=== PATIENT | male | born 1935 | race Caucasian/White ===

== ENCOUNTER 2016-11-05 09:16 | Emergency (ER) | payer MEDICARE, OTHER ==
[~2016-11-05 09:16] MED LIST: ADULT LOW DOSE81 M1 PO; ALEVE220 M4 PO; AMBIEN10 M1 PO; ANDROGEL TD; ASPIRIN81 MG; BACTRIM DS TAB1 EAC2 PO; COUMADIN1 M1 PO; COUMADIN5 M2 PO; CPAP; FISH OIL1 CAP; FISH OIL500 M3 PO; FLOMAX0.4 MG; IRON PO; LASIX20 M1 PO; LIDOCAINE-PRILO30 G1 TP; LIPITOR40 M1 PO; LIPITOR40 MG; LISINOPRIL40 MG; LODOSYN25 MG; LOVENOX100 MG/1 M SC; MIRALAX17 G2 PO; MULTI VITAMIN1 EAC2 PO; ONDANSETRON HCL8 M1 PO; OXYCODONE HCL5 M1 PO; POTASSIUM CHLO10 ME3 PO; STOOL SOFTENER50 MG; TYLENOL PM EX-S1 TAB; ZESTRIL10 M3 PO; ZZZQUIL25 MG PO
[2016-11-05 10:13] LABS: BASO % 0.1 % (0-2); EOS % 1.1 % (0-7); EOSINOPHIL ABSOLUTE COUNT 0.1 tho/cmm (0.0-0.7); HCT-HEMATOCRIT 37.8 % (36.0-53.5); HGB-HEMOGLOBIN 11.4 gm/dl (13.5-17.0); IMMATURE GRANULOCYTES ABSOLUTE 0.02 tho/cmm (0-0.03); IMMATURE GRANULOCYTES PERCENT 0.2 % (0-0.3); LYMPH ABSOLUTE COUNT 0.7 tho/cmm (0.8-4.5); MCH (MEAN CORPUSCULAR HGB) 29.5 pg (28.0-32.0); MCHC MEAN CORPUSCULAR HGB CONC 30.2 % (32.0-36.0); MCV (MEAN CELL VOLUME) 97.9 fl (82.0-96.0); MONO % 7.8 % (0-12); MONOCYTE ABSOLUTE COUNT 0.6 tho/cmm (0.0-1.2); NEUTROPHIL ABSOLUTE COUNT 6.7 tho/cmm (1.6-8.0); NEUTROPHIL-AUTOMATED 6.7 tho/cmm (1.6-8.0); NEUTROPHILS % 82.8 % (40-80); RED BLOOD COUNT 3.86 mil/cmm (4.40-5.70); RED CELL DISTRIBUTION WIDTH 17.9 % (12.4-16.4); WHITE BLOOD COUNT 8.1 tho/cmm (4.0-10.0)
[2016-11-05 10:22] LABS: INR 2.4 INR (0.9-1.1); PROTHROMBIN TIME 28.2 SECONDS (9.0-13.6)
[2016-11-05 10:28] LABS: ANION GAP 13 mmol/L (0-20); BLOOD UREA NITROGEN 15 mg/dl (6-24); CALCIUM 8.5 mg/dl (8.5-10.5); CARBON DIOXIDE-VENOUS 24 mmol/L (22-32); CHLORIDE 114 mmol/l (96-110); CREATININE 0.91 mg/dl (0.60-1.30); GLUCOSE 119 mg/dL (70-110); POTASSIUM 4.2 mmol/L (3.7-5.1); SODIUM 147 mmol/L (135-145); eGFR VALUE FOR BLACK >90 mL/Min
[2016-11-05 11:25] LABS: PLATELET COUNT 75 tho/cmm (150-450)
== END 2016-11-05 11:36 ==
LOC: EDMED 09:16
PROVIDERS: Emergency Medicine
DX: D69.59 Other secondary thrombocytopenia (principal); T45.1X5A Adverse effect of antineoplastic and immunosuppressive drugs, initial encounter; R04.0 Epistaxis

== ENCOUNTER 2016-11-15 07:43 | Day surgery (SDC) | payer MEDICARE, OTHER ==
[2016-11-15 08:37] LABS: BASO % 0.2 % (0-2); EOS % 1.6 % (0-7); EOSINOPHIL ABSOLUTE COUNT 0.2 tho/cmm (0.0-0.7); HCT-HEMATOCRIT 34.7 % (36.0-53.5); HGB-HEMOGLOBIN 10.5 gm/dl (13.5-17.0); IMMATURE GRANULOCYTES ABSOLUTE 0.07 tho/cmm (0-0.03); IMMATURE GRANULOCYTES PERCENT 0.5 % (0-0.3); LYMPH % 5.8 % (20-45); LYMPH ABSOLUTE COUNT 0.8 tho/cmm (0.8-4.5); MCH (MEAN CORPUSCULAR HGB) 29.7 pg (28.0-32.0); MCHC MEAN CORPUSCULAR HGB CONC 30.3 % (32.0-36.0); MEAN PLATELET VOLUME 11.5 cmc (9.4-12.4); MONOCYTE ABSOLUTE COUNT 1.2 tho/cmm (0.0-1.2); NEUTROPHILS % 82.9 % (40-80); PLATELET COUNT 64 tho/cmm (150-450); RED BLOOD COUNT 3.54 mil/cmm (4.40-5.70); RED CELL DISTRIBUTION WIDTH 17.4 % (12.4-16.4); WHITE BLOOD COUNT 13.2 tho/cmm (4.0-10.0)
[2016-11-15 08:41] LABS: INR 1.8 INR (0.9-1.1); PROTHROMBIN TIME 20.7 SECONDS (9.0-13.6)
[2016-11-15 08:49] LABS: ANION GAP 13 mmol/L (0-20); BLOOD UREA NITROGEN 15 mg/dl (6-24); CALCIUM 8.2 mg/dl (8.5-10.5); CARBON DIOXIDE-VENOUS 24 mmol/L (22-32); CHLORIDE 114 mmol/l (96-110); CREATININE 0.89 mg/dl (0.60-1.30); GLUCOSE 89 mg/dL (70-110); POTASSIUM 3.8 mmol/L (3.7-5.1); SODIUM 147 mmol/L (135-145); eGFR VALUE FOR BLACK >90 mL/Min
[2016-11-15 10:22] LABS: WBC MORPHOLOGY DOHLE BODIES
[2016-11-15 13:03] LABS: BODY FLUID APPEARANCE HAZY (CLEAR); BODY FLUID COLOR YELLOW (COLORLESS); BODY FLUID RBC COUNT <1000 cmm (0); BODY FLUID TYPE ASCITIC FLUID; BODY FLUID VOLUME 1200 ml; BODY FLUID WBC COUNT 107 cmm
== END 2016-11-15 11:00 ==
LOC: SHSB 07:43
PROVIDERS: Internal Medicine Medical Oncology; Radiology Diagnostic Radiology
PROC: 0W9G3ZZ Drainage of Peritoneal Cavity, Percutaneous Approach (ICD-10-PCS; principal; 2016-11-15)
DX: R18.8 Other ascites (principal); G47.33 Obstructive sleep apnea (adult) (pediatric); I10 Essential (primary) hypertension; E78.5 Hyperlipidemia, unspecified; C18.9 Malignant neoplasm of colon, unspecified; C78.7 Secondary malignant neoplasm of liver and intrahepatic bile duct; D69.6 Thrombocytopenia, unspecified; D64.9 Anemia, unspecified; G89.29 Other chronic pain; M54.9 Dorsalgia, unspecified; R04.0 Epistaxis; Z79.01 Long term (current) use of anticoagulants; Z79.899 Other long term (current) drug therapy; Z86.73 Personal history of transient ischemic attack (TIA), and cerebral infarction without residual deficits; Z86.718 Personal history of other venous thrombosis and embolism; Z87.891 Personal history of nicotine dependence; Z90.49 Acquired absence of other specified parts of digestive tract; Z98.890 Other specified postprocedural states
CPT/HCPCS: C1729; J7030

== ENCOUNTER 2016-12-22 13:23 | Emergency (ER) | payer MEDICARE, OTHER ==
[2016-12-22] MEDS ORDERED: COUMADIN1 M1 PO (14:18)
[2016-12-22] MEDS ORDERED: COUMADIN5 M2 PO (14:18)
== END 2016-12-22 16:04 ==
LOC: EDMED 13:23
DX: K59.00 Constipation, unspecified (principal)